=== PATIENT | female | born 1950 | race Caucasian/White ===

== ENCOUNTER → 2018-03-22 12:32 | Outpatient (CLI) | payer MEDICARE, BC, SELFPAY ==
--- NOTE | 2018-03-22 12:35 | DI.RAD.S_ITS ---
PROCEDURE: XR LUMBAR SPINE 2-3V INDICATIONS: post lami with right LE weakness TECHNIQUE: 3 views of the lumbar spine were acquired. COMPARISON: None. FINDINGS: Bones: No fracture or focal osseous destruction. There is anatomic alignment. Severe narrowing of L4-L5 and L5-S1 disc spaces. Diffuse facet arthropathy. There is mild lateral curvature. Lower thoracic disc degeneration, with endplate sclerosis and spurring also noted Soft tissues: Overlying bowel gas pattern is normal. No suspicious soft tissue calcifications. IMPRESSION: Severe lower lumbar spine disc degeneration at L4-L5 and L5-S1. Dictated by: Johnny Diaz M.D. on 03/22/2018 at 14:52 Approved by: Johnny Diaz M.D. on 03/22/2018 at 14:55
--- NOTE | 2018-03-22 12:35 | DI.MRI.S_ITS ---
PROCEDURE: MR LUMBAR SPINE WO CON INDICATIONS: post lami with right LE weakness TECHNIQUE: Noncontrast sagittal T1 spin echo and T2 fast echo, sagittal STIR, axial T1 and T2 fast spin echo through the lumbar spine. In cases with scoliosis, additional coronal T2 fast spin echo may be performed. COMPARISON: [facility], CR, XR LUMBAR SPINE 2-3V, 03/22/2018, 12:23. FINDINGS: Image quality: Excellent. Alignment and Curvature: There is normal bony alignment. 5 lumbar type vertebral bodies are present by plain film. Bone Marrow: Marrow is of normal overall signal. No acute vertebral body compression fractures. There is mild reactive signal within the endplates adjacent to the L3 L4, L4-L5, and L5-S1 intervertebral discs. Spinal Cord: Conus medullaris terminates at the L1-L2 disc space level. Visualized cord demonstrates normal signal and size. Paraspinous Soft Tissues: No paravertebral masses. L1-L2: Bilateral facet hypertrophy. No significant canal, nor foraminal stenosis. L2-L3: Bilateral facet hypertrophy. No significant canal, nor foraminal stenosis. L3-L4: Disc desiccation and mild diffuse disc bulge. Bilateral facet hypertrophy. Mild canal stenosis. No foraminal stenosis. L4-L5: Status post fusion. No significant canal, nor foraminal stenosis. L5-S1: Bilateral facet hypertrophy. Mild diffuse disc bulge with superimposed small broad-based right posterolateral protrusion. No significant canal stenosis. Mild right greater than left foraminal stenosis. IMPRESSION: 1. Multilevel degenerative disc and facet disease, causing mild canal and foraminal stenoses as described above. No neural impingement. Dictated by: James Chen M.D. on 03/22/2018 at 13:47 Approved by: James Chen M.D. on 03/22/2018 at 13:51
== END ==
PROVIDERS: Visit Provider Physical Medicine & Rehabilitation
DX: M51.36 Other intervertebral disc degeneration, lumbar region (principal); M51.37 Other intervertebral disc degeneration, lumbosacral region; M96.1 Postlaminectomy syndrome, not elsewhere classified
CPT/HCPCS: 72100; 72148

== ENCOUNTER 2018-05-31 12:14 | Outpatient (CLI) | payer MEDICARE, BC, SELFPAY ==
[2018-05-31] VITALS (8 sets, daily range): BP systolic 116–151; BP diastolic 49–80; PULSE 72–87; RESP 16–18; TEMP 36; O2SAT 96–100
--- NOTE | 2018-05-31 12:18 | DI.RAD.S_ITS ---
PROCEDURE: PAIN L/S TRANSFORAMINAL INJECT INDICATIONS: Chronic right footdrop post lamina FINDINGS: Fluoroscopic spot filming was performed to verify placement of spinal needles at the L5-S1 level(s), as labeled on the films. Appropriate location(s) of the needle tip(s) was confirmed by injection of iodinated contrast. IMPRESSION: Intraoperative imaging for verification of epidural injection of the right L5-S1 level. Dictated by: Mathieu White M.D. on 05/31/2018 at 15:35 Approved by: Mathiue White M.D. on 05/31/2018 at 15:35
--- NOTE | 2018-05-31 13:12 | P.PCN_ITS ---
Procedures Date/Time Date of procedure: 05/31/18 Time of procedure: 13:10 General Procedure description: PREOP DIAGNOSIS 1. FORMAINAL STENOSIS WITH LE SYMPTOMS, POST OP DIAGNOSIS 1. FORMAINAL STENOSIS WITH LE SYMPTOMS, PROCEDURES 1.FLUOROSCOPICALLY GUIDED CONTRAST CONTROLLED TRANSFORAMINAL EPIDURAL STEROID INJECTION - RIGHT L5/S1 TFESI PHYSICIAN: Kj Cano DO INDICATIONS: Clarissa is referred for treatment of Foraminal Stenosis with right LE Symptoms FINDINGS Foraminal Nerve Root Compression secondary to disc disease and facet hypertrophy DESCRIPTION OF PROCEDURE Following denial of allergy and review of potential side effects and complications, including, but not necessarily limited to, infection, allergic reaction, local tissue breakdown, stroke, temporary or permanent nerve injury, paralysis, and possible , the patient indicated that the patient understood and agreed to proceed. An informed consent document was signed by the patient, witnessed by a nurse, and placed in the patient's chart. Additionally, other treatment options including medications, modalities, and physical therapy were reviewed with the patient. After review of previous anaesthesic history and IV conscious sedation the patient was deemed safe to proceed with todays procedure with IV conscious sedation as ASA class II designation. Safety time-out was performed to confirm patient ID, procedure to be performed and site of procedure. IV sedation was accomplished with a combination of 4mg was administered by the RN after DO order , titrated to patient comfort during the course of the procedure while the patient remained responsive to all verbal commands In the prone position following sterile prep and drape of the lumbar region, the right L5/S1 posterior neuroforamen was identified fluoroscopically. The skin was anesthetized via a 25-gauge 1.5-inch needle with 1% lidocaine solution. At this point, a 25-gauge 3.5-inch spinal needle was atraumatically introduced and advanced under fluoroscopic guidance through the posterior right L5/S1 neuroforamen to approximately the anterior aspect of the canal. Depth was confirmed on lateral view. Following negative aspiration, injection of approximately 1.5 cc of Isovue 200 under live fluoroscopy in the AP view confirmed excellent flow along the nerve root, into the epidural space without vascular or intrathecal uptake observed Radiological data, including multiple fluoroscopic views of the lumbosacral spine, reveal a spinal needle at the right L5/S1 posterior neuroforamen. Subsequent views show flow of contrast material flowing superiorly and inferiorly along the nerve root confirming epidural flow. Subsequently, a test dose of 1.5 cc of 1% lidocaine solution was administered and patient was observed for two minutes for signs or symptoms of complications , including abdominal pain, shortness of breath, bilateral upper or lower extremity weakness, nausea and vomiting, prior to steroid injection. At this point, a total of 3 cc or 20 mg of dexamethasone and 80mg Depo Medrol was injected without incident. The procedure tolerated the procedure well without signs or symptoms of complications prior to transfer to the recovery area continued monitoring without incident. The patient was then transferred to the recovery area where they were observed for an appropriate time after the injection. The patient reported a VAS score of 7 prior to the procedure and a post-procedure VAS of 0. Total Fluoroscopy Time: 20.9 seconds Total Conscious Sedation Time: 24min POST OP INSTRUCTIONS The patient was provided a Pain Log to continue to record their response to the target-specific procedure prior to follow-up visit with their referring physician. Additionally, specific post-injection care instructions and a contact number to our office were provided if concerns arise regarding possible complications associated with the procedure are suspected. Kj Cano DO Complications: none
[2018-05-31] MEDS: MIDAZOLAM 5 MG/5 ML VIAL IV (13:15)
[2018-05-31] MEDS: BUPIVACAINE 0.25% (PF) VIAL 2 ML INJ (13:24)
[2018-05-31] MEDS: DEXAMETHASONE 10 MG/ML VIAL 20 MG INJ (13:25)
[2018-05-31] MEDS: IOPAMIDOL 15 ML VIAL 3 ML INJ (13:25)
[2018-05-31] MEDS: methylPREDNISolone acetate 80 MG/ML VIAL INJ (13:25)
--- NOTE | 2018-06-01 18:03 | PC.NURSE ---
Follow up call post procedure, Angie reports a slight headache today but no pain. I instructed her that if the headache gets worse or changes she should have it looked at. pt understands but thinks it may b e the result of a chiropractic visit.
== END 2018-05-31 14:10 ==
PROVIDERS: Visit Provider Physical Medicine & Rehabilitation
DX: M48.061 Spinal stenosis, lumbar region without neurogenic claudication (principal); M51.37 Other intervertebral disc degeneration, lumbosacral region; M51.27 Other intervertebral disc displacement, lumbosacral region; M96.1 Postlaminectomy syndrome, not elsewhere classified; M21.371 Foot drop, right foot
CPT/HCPCS: 64483; 99152; J1040; J1100; J2250

== ENCOUNTER → 2018-08-05 13:03 | Outpatient (CLI) | payer MEDICARE, BC, SELFPAY ==
--- NOTE | 2018-08-05 13:09 | DI.MRI.S_ITS ---
PROCEDURE: MR HIP RT WO CON INDICATIONS: Right hip DJD with possible acetabular tear TECHNIQUE: Noncontrast coronal T1 spin echo and STIR through the bony pelvis. Coronal and axial T2 fast spin echo with fat saturation, sagittal T1 spin echo, and oblique axial T2 fast spin echo with fat saturation through the hip. COMPARISON: [facility], CR, XR PELVIS W LATERAL HIP RT, 03/17/2017, 10:39. FINDINGS: Image quality: Excellent. Bones and joints: No definite fracture line identified. No acute marrow contusion. No avascular necrosis of the femoral heads. Discogenic changes are seen in the visualized lower lumbar spine Tendons and ligaments: The gluteus medius and minimus tendons appear intact, without associated muscle atrophy. The nearby proximal iliotibial band also appears intact. The iliopsoas tendon appears intact, without adjacent bursal fluid collections or evidence for impingement syndrome. The origin of the hamstring tendon is thickened with internal signal change in keeping with age indeterminate tendinopathy. The straight and reflected heads of the rectus femoris muscle origin appear intact, as well as the conjoint tendon. The ligamentum teres appears intact where visualized. Labrum and cartilage: The superior acetabulum is not well-seen and there is heterogeneous ill-defined signal change in its expected location, in keeping with complex macerated tear. There is adjacent chondral loss and acetabular degenerative changes including subchondral cysts. Normal acetabular angle Soft tissues: Visualized muscles demonstrate normal bulk and internal signal. Quadratus femoris muscle demonstrates no internal edema to suggest ischiofemoral impingement. The proximal sciatic neurovascular bundle appears normal adjacent to the hamstring tendons. No free pelvic fluid. Bladder wall thickness is normal. Genitourinary structures and bowel loops appear normal where visualized. IMPRESSION: Macerated, ill-defined superior labral tear. Right hip joint degeneration with associated subchondral cystic change in the acetabulum. Small right hip joint effusion. Right hamstring origin tendinopathy, technically age indeterminate finding. Dictated by: Johnny Diaz M.D. on 08/05/2018 at 15:23 Approved by: Johnny Diaz M.D. on 08/05/2018 at 15:33
== END ==
PROVIDERS: Visit Provider Physical Medicine & Rehabilitation
DX: S83.8X1A Sprain of other specified parts of right knee, initial encounter (principal); M16.11 Unilateral primary osteoarthritis, right hip; M25.451 Effusion, right hip
CPT/HCPCS: 73721

== ENCOUNTER → 2019-01-02 15:22 | Outpatient (CLI) | payer MEDICARE, OTHER, SELFPAY ==
--- NOTE | 2019-01-02 15:25 | DI.RAD.S_ITS ---
PROCEDURE: XR HIP W PEL IF DONE RT 2V INDICATIONS: right hip pain TECHNIQUE: AP pelvis with lateral view(s) of the right hip(s). COMPARISON: [facility], CR, XR PELVIS W LATERAL HIP RT, 03/17/2017, 10:39. FINDINGS: Bones: No fractures or dislocations. Pelvic ring appears intact. No suspicious bony lesions. Lower lumbar spondylosis and moderate bilateral hip joint degeneration, increased on the right slightly since 03/17/17 Soft tissues: The visualized bowel gas pattern is normal. No suspicious soft tissue calcifications. IMPRESSION: Slight interval progression right hip joint degeneration since 03/17/17 Dictated by: Johnny Diaz M.D. on 01/02/2019 at 16:16 Approved by: Johnny Diaz M.D. on 01/02/2019 at 16:21
--- NOTE | 2019-01-02 15:25 | DI.RAD.S_ITS ---
PROCEDURE: XR LUMBAR SPINE MIN 4V INDICATIONS: right hip pain TECHNIQUE: 5 views of the lumbar spine were acquired. COMPARISON: [facility], CR, XR LUMBAR SPINE 2-3V, 03/22/2018, 12:23. FINDINGS: Bones: No fracture or focal osseous destruction. Severe narrowing of the L4-L5 disc space. Multilevel lower thoracic disc space narrowing. Moderate L5-S1 disc space narrowing and mild lumbar disc space narrowing elsewhere. Overall, no interval change. Diffuse facet arthropathy. Minimal dextrocurvature. Bilateral hip degeneration is noted Soft tissues: Overlying bowel gas pattern is normal. No suspicious soft tissue calcifications. Oblique images: No pars defects. IMPRESSION: Unchanged multilevel lower thoracic and lumbar disc degeneration as detailed above since 03/22/18. Dictated by: Johnny Diaz M.D. on 01/02/2019 at 16:14 Approved by: Johnny Diaz M.D. on 01/02/2019 at 16:16
== END ==
PROVIDERS: Visit Provider Physical Medicine & Rehabilitation
DX: M25.551 Pain in right hip (principal); M16.0 Bilateral primary osteoarthritis of hip; M51.34 Other intervertebral disc degeneration, thoracic region; M51.36 Other intervertebral disc degeneration, lumbar region; M48.04 Spinal stenosis, thoracic region; M51.37 Other intervertebral disc degeneration, lumbosacral region; M47.816 Spondylosis without myelopathy or radiculopathy, lumbar region; M96.1 Postlaminectomy syndrome, not elsewhere classified
CPT/HCPCS: 72110; 73502

== ENCOUNTER → 2020-08-07 13:17 | Outpatient (CLI) | payer MEDICARE, OTHER, SELFPAY ==
--- NOTE | 2020-08-07 13:21 | DI.RAD.S_ITS ---
PROCEDURE: XR HIP W PEL IF DONE LT MIN 4V INDICATIONS: PAIN TECHNIQUE: AP pelvis with lateral view(s) of the bilateral hip(s). COMPARISON: [facility], , XR HIP W PEL IF DONE RT 2V, 01/02/2019, 15:29. FINDINGS: Bones: No acute fractures or dislocations. Pelvic ring appears intact. No suspicious bony lesions. Stable appearance of degenerative changes of the bilateral hip joints. Lower lumbar spondylosis. Soft tissues: The visualized bowel gas pattern is normal. No suspicious soft tissue calcifications. IMPRESSION: Stable radiographic appearance of moderate bilateral hip degenerative change. Lower lumbar spondylosis. Dictated by: Yash Villatoro M.D. on 08/07/2020 at 17:09 Approved by: Yash Villatoro M.D. on 08/07/2020 at 17:11
--- NOTE | 2020-08-07 13:21 | DI.RAD.S_ITS ---
PROCEDURE: XR LUMBAR SPINE MIN 4V INDICATIONS: PAIN TECHNIQUE: 5 views of the lumbar spine were acquired. COMPARISON: [facility], CR, XR LUMBAR SPINE MIN 4V, 01/02/2019, 15:29. FINDINGS: Bones: 5 nonrib-bearing vertebrae are present. There is minimal dextrocurvature of the lumbar spine. Stable radiographic appearance of moderate multilevel lumbar spondylosis with severe disc space loss at L4-5 and moderate disc space loss at L5-S1. Diffuse facet arthropathy, unchanged. No acute compression fractures. Lower thoracic spondylosis also noted. No suspicious bony lesions. Soft tissues: Overlying bowel gas pattern is normal. No suspicious soft tissue calcifications. Oblique images: No pars defects. IMPRESSION: 1. Unchanged radiographic appearance of moderate multilevel lower thoracic and lumbar spondylosis. 2. No acute osseous abnormalities identified in the lumbar spine. Dictated by: Yash Villatoro M.D. on 08/07/2020 at 17:12 Approved by: Yash Villatoro M.D. on 08/07/2020 at 17:14
== END ==
PROVIDERS: PCP Physician Assistant Medical; Referring Provider Physical Medicine & Rehabilitation; Visit Provider Physical Medicine & Rehabilitation
DX: M16.0 Bilateral primary osteoarthritis of hip (principal); M47.814 Spondylosis without myelopathy or radiculopathy, thoracic region; M47.816 Spondylosis without myelopathy or radiculopathy, lumbar region; M96.1 Postlaminectomy syndrome, not elsewhere classified; M99.83 Other biomechanical lesions of lumbar region; M67.90 Unspecified disorder of synovium and tendon, unspecified site
CPT/HCPCS: 72110; 73522; 99214

== ENCOUNTER → 2021-12-08 14:48 | Outpatient (CLI) | payer MEDICARE, OTHER, SELFPAY ==
--- NOTE | 2021-12-08 14:50 | DI.RAD.S_ITS ---
PROCEDURE: XR LUMBAR SPINE MIN 4V INDICATIONS: LBP with Right LE symptoms TECHNIQUE: 5 views of the lumbar spine were acquired, including bilateral oblique views. COMPARISON: [facility], , XR LUMBAR SPINE MIN 4V, 08/07/2020, 13:18. FINDINGS: Bones: 5 nonrib-bearing vertebrae are present. Moderate disc height loss at L4-S1. Facet arthrosis at L5-S1. No vertebral body compression fractures. Soft tissues: Overlying bowel gas pattern is normal. No suspicious soft tissue calcifications. Oblique images: No pars defects. IMPRESSION: Lumbar spine degeneration as detailed above. Dictated by: Abran Ceballos M.D. on 12/08/2021 at 16:47 Approved by: Abran Ceballos M.D. on 12/08/2021 at 16:48
--- NOTE | 2021-12-08 14:50 | DI.RAD.S_ITS ---
PROCEDURE: XR KNEE RT 3V INDICATIONS: right knee pain acute TECHNIQUE: 3 views of the knee were acquired. COMPARISON: [facility], CR, XR KNEE LT 3V, 12/08/2021, 14:58. FINDINGS: Bones: No acute, displaced fracture. Prominent superior patellar enthesophyte. Tricompartment osteophytosis, most prominent about the patellofemoral compartment. Soft tissues: Small joint effusion. No suspicious soft tissue calcifications. IMPRESSION: Right knee degeneration. Dictated by: Abran Ceballos M.D. on 12/08/2021 at 16:46 Approved by: Abran Ceballos M.D. on 12/08/2021 at 16:47
--- NOTE | 2021-12-08 14:50 | DI.RAD.S_ITS ---
PROCEDURE: XR KNEE LT 3V INDICATIONS: LEFT KNEE PAIN ACUTE TECHNIQUE: 3 views of the knee were acquired. COMPARISON: None. FINDINGS: Bones: No acute, displaced fracture. Prominent superior patellar enthesophyte. Mild medial compartment joint space loss. Tricompartment osteophytosis, most prominent about the patellofemoral compartment. Soft tissues: No joint effusion. No suspicious soft tissue calcifications. IMPRESSION: No acute osseous abnormality. Dictated by: Abran Ceballos M.D. on 12/08/2021 at 16:45 Approved by: Abran Ceballos M.D. on 12/08/2021 at 16:46
== END ==
PROVIDERS: PCP Nurse Practitioner Family; Referring Provider Physical Medicine & Rehabilitation; Visit Provider Physical Medicine & Rehabilitation
DX: M96.1 Postlaminectomy syndrome, not elsewhere classified (principal); M47.817 Spondylosis without myelopathy or radiculopathy, lumbosacral region; M17.11 Unilateral primary osteoarthritis, right knee; M25.562 Pain in left knee
CPT/HCPCS: 72110; 73562

== ENCOUNTER → 2023-06-21 12:26 | Outpatient (CLI) | payer MEDICARE, OTHER, SELFPAY ==
--- NOTE | 2023-06-21 12:28 | DI.RAD.S_ITS ---
PROCEDURE: XR LUMBAR SPINE MIN 4V INDICATIONS: BACK PAIN TECHNIQUE: 5 views of the lumbar spine were acquired, including bilateral oblique views. COMPARISON: [facility], CR, XR LUMBAR SPINE MIN 4V, 12/08/2021, 14:58. [facility], CR, XR LUMBAR SPINE MIN 4V, 08/07/2020, 13:18. FINDINGS: Bones: 5 nonrib-bearing vertebrae are present. Straightening of normal lumbar lordosis. There is multilevel facet arthropathy, worse at L4-5 and L5-S1. Mild multilevel disc height loss with degenerative endplate changes and spurring is present. This is most pronounced at L4-5 and L5-S1 with moderate to severe disc height loss. No vertebral body compression fractures. No suspicious bony lesions. Soft tissues: Overlying bowel gas pattern is normal. No suspicious soft tissue calcifications. Oblique images: No pars defects. IMPRESSION: Multilevel degenerative changes of the lumbar spine, most pronounced at L4-5 and L5-S1. This is progressed compared to 2021 Dictated by: Urbano Sarabia M.D. on 06/21/2023 at 13:19 Approved by: Urbano Sarabia M.D. on 06/21/2023 at 13:20
--- NOTE | 2023-06-21 15:03 | DI.RAD.S_ITS ---
PROCEDURE: XR THORACIC SPINE 3V INDICATIONS: thoracic back pain TECHNIQUE: 3 views of the thoracic spine were acquired. COMPARISON: None. FINDINGS: Bones: No fractures or dislocations. No suspicious bony lesions. 12 pairs of ribs are noted, and appear intact where visualized. Soft tissues: No paravertebral stripe thickening. IMPRESSION: Unremarkable thoracic spine radiographs Approved by: Yobani Weiss M.D. on 06/21/2023 at 18:58
== END ==
PROVIDERS: PCP Nurse Practitioner Family; Referring Provider Physical Medicine & Rehabilitation; Visit Provider Physical Medicine & Rehabilitation
DX: M47.816 Spondylosis without myelopathy or radiculopathy, lumbar region (principal); M47.817 Spondylosis without myelopathy or radiculopathy, lumbosacral region; M16.11 Unilateral primary osteoarthritis, right hip; M51.27 Other intervertebral disc displacement, lumbosacral region; M96.1 Postlaminectomy syndrome, not elsewhere classified; M99.83 Other biomechanical lesions of lumbar region; M54.6 Pain in thoracic spine
CPT/HCPCS: 72072; 72110; 99214

== ENCOUNTER → 2024-12-25 13:11 | Outpatient (CLI) | payer MEDICARE, SELFPAY ==
--- NOTE | 2024-12-25 13:14 | DI.RAD.S_ITS ---
PROCEDURE: XR THORACIC SPINE 3V INDICATIONS: PRogressive LBP TECHNIQUE: 3 views of the thoracic spine were acquired. COMPARISON: [facility], CR, XR THORACIC SPINE 3V, 06/21/2023, 15:23. FINDINGS: Twelve rib-bearing thoracic vertebrae are identified. The vertebral body heights are preserved. Diffuse idiopathic skeletal hyperostosis of the upper-mid thoracic spine. The intervertebral disc heights are preserved. Mildly exaggerated thoracic kyphosis. Partially identified hypertrophy of the L1-L2 spinous processes with inter spinous arthropathy. IMPRESSION: 1. No acute thoracic compression fracture. 2. Diffuse idiopathic skeletal hyperostosis of the thoracic spine. 3. L1-L2 spinous process hypertrophy, which can be seen with Baastrup's disease. Please correlate for point tenderness. Dictated by: Joseph Ribera M.D. on 12/25/2024 at 16:39 Approved by: Joseph Ribera M.D. on 12/25/2024 at 16:41
--- NOTE | 2024-12-25 13:14 | DI.RAD.S_ITS ---
PROCEDURE: XR LUMBAR SPINE MIN 4V INDICATIONS: PRogressive LBP TECHNIQUE: 5 views of the lumbar spine were acquired, including bilateral oblique views. COMPARISON: [facility], CR, XR LUMBAR SPINE MIN 4V, 06/21/2023, 12:47. [facility], CR, XR LUMBAR SPINE MIN 4V, 12/08/2021, 14:58. [facility], CR, XR LUMBAR SPINE MIN 4V, 08/07/2020, 13:18. [facility], CR, XR LUMBAR SPINE 2-3V, 03/22/2018, 12:23. FINDINGS: Diffuse osseous demineralization. Five non rib-bearing lumbar vertebrae are present. The vertebral body heights are preserved. Multilevel intervertebral disc height loss, most conspicuous at L4-L5 and L5-S1. Multilevel facet arthropathy with hypertrophy of the spinous processes. Mild-moderate foraminal narrowing at L4-L5 and L5-S1. Mild right sacroiliac and bilateral hip osteoarthritis. IMPRESSION: Multilevel hypertrophy of the spinous processes and facet arthropathy, which can be seen with Baastrup's disease. Otherwise, no acute radiographic abnormality of the lumbar spine. Dictated by: Joseph Ribera M.D. on 12/25/2024 at 16:41 Approved by: Joseph Ribera M.D. on 12/25/2024 at 16:43
== END ==
PROVIDERS: PCP Nurse Practitioner Family; Referring Provider Physical Medicine & Rehabilitation; Visit Provider Physical Medicine & Rehabilitation
DX: M96.1 Postlaminectomy syndrome, not elsewhere classified (principal); M99.08 Segmental and somatic dysfunction of rib cage; M99.83 Other biomechanical lesions of lumbar region; M16.0 Bilateral primary osteoarthritis of hip; M47.24 Other spondylosis with radiculopathy, thoracic region; M51.27 Other intervertebral disc displacement, lumbosacral region; M47.816 Spondylosis without myelopathy or radiculopathy, lumbar region; M47.818 Spondylosis without myelopathy or radiculopathy, sacral and sacrococcygeal region; M48.061 Spinal stenosis, lumbar region without neurogenic claudication; M48.07 Spinal stenosis, lumbosacral region; M17.11 Unilateral primary osteoarthritis, right knee; M67.959 Unspecified disorder of synovium and tendon, unspecified thigh
CPT/HCPCS: 72072; 72110; 99214